=== PATIENT | female | born 1940 | race Caucasian/White ===

== ENCOUNTER → 2016-08-07 | Day surgery (SDC) | payer OTHER, BC ==
--- NOTE | 2016-08-08 15:06 | PATH ---
Surgical Pathology Report Patient Name: ARLINE JAIME [facility]. Rec. #: [id number] /Age/Gender: 1940 (Age: 75) / F Account: [id number] Location: [facility] Taken: 08/07/2016 Received: 08/07/2016 Reported: 08/08/2016 Physicians: Jean Barlow M.D. Henry Bareket, MD Specimen(s) Received RIGHT BREAST CORE BIOPSY 9:00, 6CM FN Clinical History Suspicious Final Diagnosis RIGHT BREAST, 9:00 6 CM FROM NIPPLE, ULTRASOUND GUIDED NEEDLE CORE BIOPSY: MODERATELY DIFFERENTIATED INVASIVE DUCTAL CARCINOMA, MEASURING APPROXIMATELY 3 MM MEASURED ON A SLIDE. Results of Estrogen Receptor (ER) and Progesterone Receptor (AR) studies performed at [facility] are as follows: ER (clone [id number] mouse monoclonal antibody by [employer]): 100% nuclear staining with strong intensity (Positive). AR (clone16 mouse monoclonal antibody by [employer]): 0% nuclear staining (Negative). Positive and negative controls (internal if applicable) show appropriate results. Formalin fixation and cold ischemic times are within current ASCO/CAP recommendations for ER, AR and Her2 testing. Comment: Immunohistochemical stains for p63 and smooth muscle myosin heavy chain demonstrate loss of the myoepithelial cell layer in the areas of invasive carcinoma. This case was discussed with Dr. Kenneth Valdez on 08/08/2016. Assays for HER-2/pranav and Ki67 are pending, and a report will follow. Electronically Signed Shahram Blunt M.D. Addendum Reported: 08/09/2016 Addendum Diagnosis Results of Her2 (IHC) & Ki-67 studies performed at [place], [place] ([id number]) are as follows: Her2 IHC (EP3 from [employer], formerly known as [id number], using [employer] Polymer Refine detection kit): 1+ (Negative) Ki-67: up to 10-15% (Low proliferation index) Positive and negative controls (internal if applicable) show appropriate results. Luis Nina M.D. Gross Description Received in formalin labeled "right breast core 9:00, 6 cmfn," are 4 colin-yellow, cylindrical portions of fibroadipose tissue ranging from 0.3-1.2 cm in length and averaging 0.1 cm in diameter. The specimens are submitted in toto in one cassette. Time to formalin fixation: 2 minutes Total formalin fixation time: Approximately 9 hours. 08/07/201608/07/2016
== END | disposition home or self-care (01) ==
LOC: FRADUS-SUR 11:59
PROVIDERS: ATTEND Obstetrics & Gynecology
PROC: 0HBT3ZX Excision of Right Breast, Percutaneous Approach, Diagnostic (ICD-10-PCS; principal; 2016-08-07)
DX: N63 Unspecified lump in breast (principal); C50.811 Malignant neoplasm of overlapping sites of right female breast
CPT/HCPCS: 19083; 87899; 88305-TC; 88341-TC; 88342-TC; A4648; G0206-TC